=== PATIENT | male | born 1980 ===

== ENCOUNTER 2019-04-30 04:51 | Emergency (ER) | payer MEDICARE ==
[2019-04-30 05:40] LABS: Basophils % (Auto) 0.1 % (0.0-1.8); Eosinophils # (Auto) 0.4 K/mm3 (0.0-0.4); Eosinophils % (Auto) 5.9 % (0.0-4.3); Hematocrit 42.6 % (35.5-45.6); Lymphocytes # (Auto) 1.9 K/mm3 (1.2-5.4); Lymphocytes % (Auto) 31.1 % (13.4-35.0); Mean Corpuscular HGB Conc 35 % (32-34); Mean Corpuscular Volume 88 fl (84-94); Monocytes # (Auto) 0.5 K/mm3 (0.0-0.8); Monocytes % (Auto) 8.2 % (0.0-7.3); Platelet Count 313 K/mm3 (140-440); Red Blood Count 4.83 M/mm3 (3.65-5.03); Red Cell Distribution Width 12.4 % (13.2-15.2)
[2019-04-30 05:42] LABS: Bilirubin,Urine NEG (Negative); Blood,Urine NEG (Negative); Color,Urine Yellow (Yellow); Mucus,Urine FEW /HPF; Protein,Urine <15 mg/dL mg/dL (Negative); Urobilinogen,Urine < 2.0 mg/dL (<2.0)
[2019-04-30 05:47] LABS: Alanine Aminotransferase 30 units/L (7-56); Albumin 4.5 g/dL (3.9-5); BUN/Creatinine Ratio 5; Blood Urea Nitrogen 5 mg/dL (9-20); Calcium 9.2 mg/dL (8.4-10.2); Hemolysis Index 3
[2019-04-30] MEDS ORDERED: LIDOCAINE VISCOUS 2% 15 ML ORAL LIQD PO ONE (06:47)
[2019-04-30] MEDS ORDERED: ONDANSETRON 4 MG/2 ML INJ IM ONE (06:47)
[2019-04-30] MEDS ORDERED: ALUM-MAG HYDROXIDE-SIMETHICONE 200-200-20MG/5ML ORAL LIQD 30 ML PO ONE (06:47)
[2019-04-30] MEDS ORDERED: fentaNYL 100 MCG/2 ML INJ IM ONE (06:47)
--- NOTE | 2019-04-30 06:52 | Emergency Department Report ---
HPI - General Chief Complaint: Abdominal Pain Time Seen by Provider: 04/30/19 06:40 - HPI HPI: Room 3 The patient is a 39-year-old male presenting with the chief complaint of abdominal pain. The patient states for the past 4-5 hours his burning intermi ttent epigastric abdominal pain. Patient denies nausea vomiting or diarrhea. Patient denies history of fever. Patient states he has had similar episodes of same in the past and has been initiated to his gallbladder. Patient states he has not noticed any increase in pain with meals. Patient currently gives his pain score of 6/10 ED Past Medical Hx - Past Medical History Previous Medical History?: No - Surgical History Past Surgical History?: Yes Additional Surgical History: buttock - Family History Family history: no significant - Social History Smoking Status: Never Smoker Substance Use Type: None (denies illicit drug use) - Medications Home Medications: Home Medications Medication Instructions Recorded Confirmed Last Taken Type Acetaminophen [Tylenol Arthritis] 650 mg PO Q6HR PRN #30 tablet.er 04/24/18 Unknown Rx Artane 04/24/18 Unknown History Haloperidol Lactate [Haldol (Nf)] 5 mg PO BID 04/24/18 04/24/18 Unknown History [place] 300 mg PO DAILY 04/24/18 04/24/18 Unknown History QUEtiapine [SEROquel] 25 mg PO QDAY 04/24/18 04/24/18 Unknown History Famotidine [Pepcid] 20 mg PO BID #30 tablet 03/26/19 Unknown Rx Ondansetron [Zofran ODT TAB] 4 mg PO Q8HR PRN #20 tab.rapdis 03/26/19 Unknown Rx hydroCHLOROthiazide [HCTZ] 12.5 mg PO QDAY #30 capsule 03/26/19 Unknown Rx Dicyclomine [Bentyl] 20 mg PO QID #20 tablet 04/30/19 Unknown Rx HYDROcodone/APAP 5-325 [[place] 1 - 2 each PO Q6HR PRN #14 tablet 04/30/19 Unknown Rx 5/325] Ondansetron [Zofran ODT TAB] 8 mg PO Q8HR #20 tab.rapdis 04/30/19 Unknown Rx ED Review of Systems ROS: Stated complaint: ABD PAIN Other details as noted in HPI Constitutional: denies: fever Eyes: denies: eye pain ENT: denies: throat pain Respiratory: no symptoms reported Cardiovascular: denies: chest pain Endocrine: no symptoms reported Gastrointestinal: abdominal pain. denies: nausea, vomiting, diarrhea Genitourinary: denies: dysuria Musculoskeletal: denies: back pain Neurological: denies: headache Physical Exam - Physical Exam Vital Signs: Vital Signs 04/30/19 04:55 Temperature 98.1 F Pulse Rate 86 Respiratory 20 Rate Blood Pressure 172/116 O2 Sat by Pulse 98 Oximetry Physical Exam: GENERAL: The patient is well-developed well-nourished male lying on stretcher sleeping not appear to be in acute distress. [] HEENT: Normocephalic. Atraumatic. Extraocular motions are intact. Patient has moist mucous membranes. NECK: Supple. Trachea midline CHEST/LUNGS: Clear to auscultation. There is no respiratory distress noted. HEART/CARDIOVASCULAR: Regular. There is no tachycardia. There is no gallop rub or murmur. ABDOMEN: Abdomen is soft, with minimal discomfort to palpation in the midepigastric region. Absent Gleason sign. There is no tenderness to palpation in the right upper quadrant There is no rebound or guarding. Patient has normal bowel sounds. There is no abdominal distention. SKIN: There is no rash. There is no edema. There is no diaphoresis. NEURO: The patient is awake, alert, and oriented. The patient is cooperative. The patient has normal speech MUSCULOSKELETAL: There is no evidence of acute injury. ED Course Vital Signs 04/30/19 04:55 Temperature 98.1 F Pulse Rate 86 Respiratory 20 Rate Blood Pressure 172/116 O2 Sat by Pulse 98 Oximetry - Reevaluation(s) Reevaluation #1: 04/30/19 08:04 Patient improved and states she has an appointment to follow-up with the surgeon in 2 days ED Medical Decision Making - Lab Data Result diagrams: 04/30/19 05:02 04/30/19 05:02 - Differential Diagnosis GERD, peptic ulcer disease, pancreatitis, symptomatic cholelithiasis Critical care attestation.: If time is entered above; I have spent that time in minutes in the direct care of this critically ill patient, excluding procedure time. ED Disposition Clinical Impression: Acute abdominal pain, Cholelithiasis Disposition: DC- TO HOME OR SELFCARE Is pt being admited?: No Does the pt Need Aspirin: No Condition: Stable Instructions: Abdominal Pain (ED) Prescriptions: Dicyclomine [Bentyl] 20 mg PO QID #20 tablet HYDROcodone/APAP 5-325 [[place] 5/325] 1 - 2 each PO Q6HR PRN #14 tablet PRN Reason: Pain Ondansetron [Zofran ODT TAB] 8 mg PO Q8HR #20 tab.allie Referrals: your, surgeon [Other] - 05/02/19 Time of Disposition: 08:07
[2019-04-30] MEDS ORDERED: POTASSIUM CHLORIDE ER 20 MEQ TAB PO ONE (06:55)
[2019-04-30 09:19] VITALS: BP 136/93
== END 2019-04-30 09:04 | disposition home or self-care (01) ==
LOC: ED 04:51
DX: K80.20 Calculus of gallbladder without cholecystitis without obstruction (principal)
CPT/HCPCS: 36415; 80053; 81001; 83690; 85025; 96372; 99283; J2405; J3010

== ENCOUNTER 2019-05-15 12:45 | Emergency (ER) | payer MEDICARE ==
--- NOTE | 2019-05-15 13:02 | Event Note ---
ED Screening Note Date of service: 05/15/19 Time: 13:01 ED Screening Note: This is a 39 y.o. M. that presents to the ER with epigastric pain since waking. Patient states he woke up with symptoms. He was told he need to have cholecystectomy. This initial assessment/diagnostic orders/clinical plan/treatment(s) is/are subject to change based on patients health status, clinical progression and re- assessment by fellow clinical providers in the ED. Further treatment and workup at subsequent clinical providers discretion. Patient/guardian urged not to elope from the ED as their condition may be serious if not clinically assessed and managed. Initial orders include: Labs and CT of abdomen
[2019-05-15] MEDS ORDERED: ZOFRAN IV ONE (13:08)
[2019-05-15] MEDS ORDERED: MORPHINE IV ONE (13:08)
[2019-05-15] MEDS ORDERED: NACL 0.9% 1000 ML 1,000 ML IV ONE (13:08)
[2019-05-15 13:58] LABS: Basophils % (Auto) 0.8 % (0.0-1.8); Eosinophils # (Auto) 0.3 K/mm3 (0.0-0.4); Eosinophils % (Auto) 5.6 % (0.0-4.3); Hematocrit 43.1 % (35.5-45.6); Hemoglobin 15.1 gm/dl (11.8-15.2); Lymphocytes # (Auto) 1.6 K/mm3 (1.2-5.4); Lymphocytes % (Auto) 30.3 % (13.4-35.0); Mean Corpuscular HGB Conc 35 % (32-34); Mean Corpuscular Volume 89 fl (84-94); Monocytes # (Auto) 0.6 K/mm3 (0.0-0.8); Monocytes % (Auto) 11.1 % (0.0-7.3); Platelet Count 316 K/mm3 (140-440); Red Blood Count 4.85 M/mm3 (3.65-5.03); Red Cell Distribution Width 12.5 % (13.2-15.2)
[2019-05-15 14:16] LABS: Alanine Aminotransferase 17 units/L (7-56); Albumin 4.3 g/dL (3.9-5); BUN/Creatinine Ratio 8; Blood Urea Nitrogen 7 mg/dL (9-20); Calcium 8.7 mg/dL (8.4-10.2); Hemolysis Index 9
[2019-05-15] MEDS ORDERED: K-DUR PO ONE (14:20)
[2019-05-15] MEDS ORDERED: DILAUDID IV ONE (14:40)
--- NOTE | 2019-05-15 14:55 | Emergency Department Report ---
<NAI POMPA - Last Filed: 05/15/19 18:12> ED Abdominal Pain HPI - General Chief Complaint: Abdominal Pain Stated Complaint: UPPER STOMACH ACHE Time Seen by Provider: 05/15/19 13:01 Source: patient Mode of arrival: Ambulatory Limitations: No Limitations - History of Present Illness Initial Comments: This is a 39-year-old male nontoxic, well nourished in appearance, no acute signs of distress presents to the ED with c/o of nausea and vomiting and abdominal pain 1 day. Patient describes vomiting as food content and yellow gastric acid. Patient describes abdominal pain as cramping and aching with level of 8/10 diffuse. Patient denies chest pain, short of breath, fever, chills, headache, stiff neck, numbness or tingling. Patient denies any diarrhea or constipation. Patient denies any recent travels. Patient denies any allergies. MD Complaint: abdominal pain -: days(s) (1) Location: diffuse Radiation: none Migration to: no migration Severity: mild Severity scale (0 -10): 8 Quality: cramping, aching Consistency: constant Improves With: nothing Worsens With: nothing Associated Symptoms: nausea, vomiting. denies: diarrhea, fever, chills, constipation, dysuria, hematemesis, hematochezia, melena, hematuria, anorexia, syncope - Related Data Home Medications Medication Instructions Recorded Confirmed Last Taken Artane 04/24/18 Unknown Haloperidol Lactate [Haldol (Nf)] 5 mg PO BID 04/24/18 04/24/18 Unknown [place] 300 mg PO DAILY 04/24/18 04/24/18 Unknown QUEtiapine [SEROquel] 25 mg PO QDAY 04/24/18 04/24/18 Unknown Previous Rx's Medication Instructions Recorded Last Taken Type Acetaminophen [Tylenol Arthritis] 650 mg PO Q6HR PRN #30 tablet.er 04/24/18 Unknown Rx Famotidine [Pepcid] 20 mg PO BID #30 tablet 03/26/19 Unknown Rx Ondansetron [Zofran ODT TAB] 4 mg PO Q8HR PRN #20 tab.rapdis 03/26/19 Unknown Rx hydroCHLOROthiazide [HCTZ] 12.5 mg PO QDAY #30 capsule 03/26/19 Unknown Rx Dicyclomine [Bentyl] 20 mg PO QID #20 tablet 04/30/19 Unknown Rx HYDROcodone/APAP 5-325 [[place] 1 - 2 each PO Q6HR PRN #14 tablet 04/30/19 Unknown Rx 5/325] Ondansetron [Zofran ODT TAB] 8 mg PO Q8HR #20 tab.rapdis 04/30/19 Unknown Rx Acetaminophen/Codeine [Tylenol 1 tab PO Q6H PRN #12 tab 05/15/19 Unknown Rx /Codeine # 3 tab] Ondansetron [Zofran Odt] 4 mg PO Q8HR PRN #12 tab.rapdis 05/15/19 Unknown Rx Allergies Allergy/AdvReac Type Severity Reaction Status Date / Time No Known Allergies Allergy Verified 05/15/19 12:46 ED Review of Systems Constitutional: denies: chills, fever Eyes: denies: eye pain, eye discharge, vision change ENT: denies: ear pain, throat pain Respiratory: denies: cough, shortness of breath, wheezing Cardiovascular: denies: chest pain, palpitations Endocrine: no symptoms reported Gastrointestinal: abdominal pain, nausea, vomiting. denies: diarrhea Genitourinary: denies: urgency, dysuria Musculoskeletal: denies: back pain, joint swelling, arthralgia Skin: denies: rash, lesions Neurological: denies: headache, weakness, paresthesias Psychiatric: denies: anxiety, depression Hematological/Lymphatic: denies: easy bleeding, easy bruising ED Past Medical Hx - Past Medical History Hx Congestive Heart Failure: No Hx Diabetes: No Hx Asthma: No Hx COPD: No - Surgical History Additional Surgical History: buttock - Social History Smoking Status: Never Smoker Substance Use Type: None - Medications Home Medications: Home Medications Medication Instructions Recorded Confirmed Last Taken Type Acetaminophen [Tylenol Arthritis] 650 mg PO Q6HR PRN #30 tablet.er 04/24/18 Unknown Rx Artane 04/24/18 Unknown History Haloperidol Lactate [Haldol (Nf)] 5 mg PO BID 04/24/18 04/24/18 Unknown History [place] 300 mg PO DAILY 04/24/18 04/24/18 Unknown History QUEtiapine [SEROquel] 25 mg PO QDAY 04/24/18 04/24/18 Unknown History Famotidine [Pepcid] 20 mg PO BID #30 tablet 03/26/19 Unknown Rx Ondansetron [Zofran ODT TAB] 4 mg PO Q8HR PRN #20 tab.rapdis 03/26/19 Unknown Rx hydroCHLOROthiazide [HCTZ] 12.5 mg PO QDAY #30 capsule 03/26/19 Unknown Rx Dicyclomine [Bentyl] 20 mg PO QID #20 tablet 04/30/19 Unknown Rx HYDROcodone/APAP 5-325 [[place] 1 - 2 each PO Q6HR PRN #14 tablet 04/30/19 Unkn own Rx 5/325] Ondansetron [Zofran ODT TAB] 8 mg PO Q8HR #20 tab.rapdis 04/30/19 Unknown Rx Acetaminophen/Codeine [Tylenol 1 tab PO Q6H PRN #12 tab 05/15/19 Unknown Rx /Codeine # 3 tab] Ondansetron [Zofran Odt] 4 mg PO Q8HR PRN #12 tab.rapdis 05/15/19 Unknown Rx ED Physical Exam - General Limitations: No Limitations General appearance: alert, in no apparent distress - Head Head exam: Present: atraumatic, normocephalic - Eye Eye exam: Present: normal appearance - Neck Neck exam: Present: normal inspection, full ROM. Absent: tenderness, meningismus, lymphadenopathy - Respiratory Respiratory exam: Present: normal lung sounds bilaterally. Absent: respiratory distress, wheezes, rales, rhonchi, stridor, chest wall tenderness, accessory muscle use, decreased breath sounds, prolonged expiratory - Cardiovascular Cardiovascular Exam: Present: regular rate, normal rhythm, normal heart sounds. Absent: bradycardia, tachycardia, irregular rhythm, systolic murmur, diastolic murmur, rubs, gallop - GI/Abdominal GI/Abdominal exam: Present: soft, tenderness (diffuse), normal bowel sounds. Absent: distended, guarding, rebound, rigid, diminished bowel sounds - Rectal Rectal exam: Present: deferred - Extremities Exam Extremities exam: Present: normal inspection, full ROM - Back Exam Back exam: Present: normal inspection, full ROM. Absent: tenderness, CVA tenderness (R), CVA tenderness (L), muscle spasm, paraspinal tenderness, ve rtebral tenderness, rash noted - Neurological Exam Neurological exam: Present: alert, oriented X3, normal gait - Psychiatric Psychiatric exam: Present: normal affect, normal mood - Skin Skin exam: Present: warm, dry, intact, normal color. Absent: rash ED Course - Reevaluation(s) Reevaluation #1: 05/15/19 14:53 Patient is speaking in full sentences with no signs of distress noted. ED Medical Decision Making - Lab Data Result diagrams: 05/15/19 Unknown 05/15/19 Unknown - Medical Decision Making This is a 39-year-old male that presents with cholelithiasis. Patient is stable and was examined by me. There is no abdominal tenderness. Negative signs of symptoms of appendicitis. Labs obtained. UA obtained. CT of abdomen obtained and dictated by the radiologist. Patient is notified of the report with no questions noted by the patient. Vital signs are stable prior to discharge. Patient received medical treatment in the ED which patient stated symptoms has resovled and subsided. Was instructed note to operate any machinery due to possible drowsiness and stated someone will drive the patient home. A by mouth challenge has been obtained and patient tolerated well with no nausea vomiting. Patient was notified of strict precatuions of appendictis symptoms and to return to the ED if symptoms occurs as soon as possible. Patient was also instructed to Follow-up with a primary care doctor in 3-5 days or if symptoms worsen and continue return to emergency room as soon as possible. At time of discharge, th e patient does not seem toxic or ill in appearance. No acute signs of distress noted. Patient agrees to discharge treatment plan of care. No further questions noted by the patient. - Differential Diagnosis appendicitis,pancreatitis, bowel obstruction, viral gastritis, cholelithias ED Disposition Clinical Impression: Cholelithiasis Qualifiers: Cholelithiasis location: gallbladder Cholecystitis presence: without cholecystitis Biliary obstruction: without biliary obstruction Qualified Code(s): K80.20 - Calculus of gallbladder without cholecystitis without obstruction Disposition: DC-01 TO HOME OR SELFCARE Is pt being admited?: No Does the pt Need Aspirin: No Condition: Stable Instructions: Cholecystitis (ED) Additional Instructions: Follow-up with a primary care doctor in 3-5 days or if symptoms worsen and continue return to emergency room as soon as possible. Prescriptions: Acetaminophen/Codeine [Tylenol /Codeine # 3 tab] 1 tab PO Q6H PRN #12 tab PRN Reason: Pain , Severe (7-10) Ondansetron [Zofran Odt] 4 mg PO Q8HR PRN #12 tab.rapdis PRN Reason: Nausea Referrals: PRIMARY CARE, [Primary Care Provider] - 3-5 Days CASEY GHOSH MD [Staff Physician] - 3-[address] [facility] [place] [Outside] - 3-5 Days [facility] [Outside] - 3-5 Days Time of Disposition: 18:16 <ABEL BEAL - Last Filed: 05/16/19 08:18> ED Review of Systems ROS: Stated complaint: UPPER STOMACH ACHE Other details as noted in HPI ED Course Vital Signs 05/15/19 05/15/19 05/15/19 13:02 15:25 18:35 Temperature 98.4 F 98.5 F Pulse Rate 88 72 Respiratory 18 16 18 Rate Blood Pressure 164/116 Blood Pressure 160/89 [Left] O2 Sat by Pulse 100 100 Oximetry ED Medical Decision Making - Lab Data Result diagrams: 05/15/19 Unknown 05/15/19 Unknown - Radiology Data Radiology results: report reviewed CT of the abdomen and pelvis with contrast INDICATION: Abdominal pain starting this morning COMPARISON: 04/24/2018 FINDINGS: Lung bases are clear. The liver, spleen, pancreas, adrenal glands and kidneys show no significant abnormalities. Very small low density renal lesions are likely cysts. Large gallstone is seen with possible gallbladder wall thickening but this appearance is unchanged from 2018. There is no surrounding gallbladder inflammation. No biliary tree dilation. No fluid or adenopathy in the upper abdomen. There is moderate cardiomegaly present. CT of the pelvis shows motion artifact but no definite bowel obstruction. Appendix is not definitely seen. Prostate is not enlarged. No ureteral stones are seen. No stone fragments seen in the bladder. No pelvic fluid or adenopathy. IMPRESSION: Cholelithiasis. No definite change from 2018. Critical care attestation.: If time is entered above; I have spent that time in minutes in the direct care of this critically ill patient, excluding procedure time.
--- NOTE | 2019-05-15 15:50 | Cat Scan Report ---
CT of the abdomen and pelvis with contrast INDICATION: Abdominal pain starting this morning COMPARISON: 04/24/2018 FINDINGS: Lung bases are clear. The liver, spleen, pancreas, adrenal glands and kidneys show no signi ficant abnormalities. Very small low density renal lesions are likely cysts. Large gallstone is seen with possible gallbladder wall thickening but this appearance is unchanged from 2018. There is no jose angel rounding gallbladder inflammation. No biliary tree dilation. No fluid or adenopathy in the upper abdo men. There is moderate cardiomegaly present. CT of the pelvis shows motion artifact but no definite bowel obstruction. Appendix is not definitely seen. Prostate is not enlarged. No ureteral stones are seen. No stone fragments seen in the bladder. No pelvic fluid or adenopathy. IMPRESSION: Cholelithiasis. No definite change from 2018. Automated exposure control was utilized to diminish radiation dose. Signer Name: Dominguez Ray MD Signed: 05/15/2019 3:46 PM Workstation Name: [id number]
[2019-05-15 18:37] VITALS: BP 160/89
== END 2019-05-15 19:01 | disposition home or self-care (01) ==
LOC: ED 12:45
DX: K08.20 Unspecified atrophy of edentulous alveolar ridge (principal); R11.2 Nausea with vomiting, unspecified; Z79.899 Other long term (current) drug therapy
CPT/HCPCS: 36415; 74177; 80053; 83690; 85025; 96361; 96374; 96375; 99284; J1170; J2270; J2405; J7030; Q9967